=== PATIENT | female | born 1940 | race Caucasian/White ===

== ENCOUNTER 2018-05-09 20:58 | Emergency (ER) | payer OTHER ==
[2018-05-09 21:05] VITALS: BP 118/68; PULSE 116; TEMP 98.3; BMI 21.9
[2018-05-09] MEDS ORDERED: SODIUM CHLORIDE 1,000 ML IV STA (22:38)
--- NOTE | 2018-05-09 22:38 | PDOC ---
History of Present Illness - General History Source: Patient, Family (Daughter) Exam Limitations: No Limitations - History of Present Illness Initial Comments: 05/09/18 23:20 The patient is a 77-year-old female, with a significant past medical history of NIDDM, who presents to the ED with 1 day of diarrhea. Patient states that her symptoms began this morning and since then she reports having 10 episodes of loose, watery stool. She reports that she noted blood during her initial episodes but now she notes mucus in her stool. Patient does have a history of hemorrhoids. She reports taking a dose of imodium at 6PM and a second one at 8PM. She denies any recent travel or recent sick contacts. The patient denies any fever, chills, nausea, vomiting, or abdominal pain. Denies any shortness of breath or chest pain. Allergies: NKA Surgical History: Social History: None reported PCP: Dr. Mireya Diaz <Jacqueline Juares - Last Filed: 05/09/18 23:49> <Marine Navarrete - Last Filed: 05/14/18 16:34> - General Chief Complaint: Diarrhea Stated Complaint: DIARRHEA Time Seen by Provider: 05/09/18 22:35 Past History <Jacqueline Juares - Last Filed: 05/09/18 23:49> - Past Medical History COPD: No Diabetes: Yes - Immunization History Immunization Up to Date: Yes - Suicide/Smoking/Psychosocial Hx Smoking History: Never smoked Have you smoked in the past 12 months: No Number of Cigarettes Smoked Daily: 0 Hx Alcohol Use: No Drug/Substance Use Hx: No Substance Use Type: None <Marine Navarrete - Last Filed: 05/14/18 16:34> - Past Medical History Allergies/Adverse Reactions: Allergies Allergy/AdvReac Type Severity Reaction Status Date / Time No Known Allergies Allergy Verified 01/15/16 21:45 Home Medications: Ambulatory Orders metFORMIN HCL [Glucophage] 18 unit PO DAILY 02/05/14 Calcium [Hi-Edwin] 250 mg PO DAILY 01/15/16 Cholecalciferol (Vitamin D3) [Vitamin D-3] 2,000 unit PO DAILY 01/15/16 Insulin Lispro Protamin/Lispro [Humalog Mix 75-25 Kwikpen] 100 unit SQ BID 01/15 Multivit-Min/Iron/Folic/Lutein [Centrum Silver Women Tablet] 1 each PO DAILY levoFLOXacin [Levaquin -] 250 mg PO DAILY #7 tablet 05/10/18 Review of Systems - Review of Systems Able to Perform ROS?: Yes Comments:: 05/09/18 23:20 CONSTITUTIONAL: Absent: fever, chills, diaphoresis, generalized weakness, malaise, loss of appetite HEENT: Absent: rhinorrhea, nasal congestion, throat pain, throat swelling, difficulty swallowing, mouth swelling, ear pain, eye pain, visual Changes CARDIOVASCULAR: Absent: chest pain, syncope, palpitations, irregular heart rate, lightheadedness , peripheral edema RESPIRATORY: Absent: cough, shortness of breath, dyspnea with exertion, orthopnea, wheezing, stridor, hemoptysis GASTROINTESTINAL: Present: diarrhea Absent: abdominal pain, abdominal distension, nausea, vomiting, constipation, melena, hematochezia GENITOURINARY: Absent: dysuria, frequency, urgency, hesitancy, hematuria, flank pain, genital pain MUSCULOSKELETAL: Absent: myalgia, arthralgia, joint swelling SKIN: Absent: rash, itching, pallor HEMATOLOGIC/IMMUNOLOGIC: Absent: easy bleeding, easy bruising, lymphadenopathy, frequent infections ENDOCRINE: Absent: unexplained weight gain, unexplained weight loss, heat intolerance, cold intolerance NEUROLOGIC: Absent: headache, focal weakness or paresthesias, dizziness, unsteady gait, seizure, mental status changes, bladder or bowel incontinence PSYCHIATRIC: Absent: anxiety, depression, suicidal or homicidal ideation, hallucinations. <Jacqueline Juares - Last Filed: 05/09/18 23:49> *Physical Exam - Vital Signs Last Vital Signs Temp Pulse Resp BP Pulse Ox 98.3 F 116 H 20 118/68 98 05/09/18 21:02 05/09/18 21:02 05/09/18 21:02 05/09/18 21:02 05/09/18 21:02 - Physical Exam Comments: 05/09/18 23:21 GENERAL: Well developed, well nourished. Awake and alert. No acute distress. HEENT: Normocephalic, atraumatic. PERRLA, EOMI. No conjunctival pallor. Sclera are non- icteric. Moist mucous membranes. Oropharynx is clear. NECK: Supple. Full ROM. No JVD. Carotid pulses 2+ and symmetric, without bruits. No thyromegaly. No lymphadenopathy. CARDIOVASCULAR: Regular rate and rhythm. No murmurs, rubs, or gallops. Distal pulses are 2+ and symmetric. PULMONARY: No evidence of respiratory distress. Lungs clear to auscultation bilaterally. No wheezing, rales or rhonchi. ABDOMINAL: Soft. Non-tender. Non-distended. No rebound or guarding. No organomegaly. Normoactive bowel sounds. MUSCULOSKELETAL Normal range of motion at all joints. No bony deformities or tenderness. No CVA tenderness. EXTREMITIES: No cyanosis. No clubbing. No edema. No calf tenderness. SKIN: Warm and dry. Normal capillary refill. No rashes. No jaundice. NEUROLOGICAL: Alert, awake, appropriate. PSYCHIATRIC: Cooperative. Good eye contact. Appropriate mood and affect. Rectal Exam: (+)Skin is very erythematous. 5mm hemorrhoid, nonthrombosed. No blood noted on exam. Normal rectal tone. <Jacqueline Juares - Last Filed: 05/09/18 23:49> - Vital Signs Last Vital Signs Temp Pulse Resp BP Pulse Ox 98.3 F 116 H 20 118/68 98 05/09/18 21:02 05/09/18 21:02 05/09/18 21:02 05/09/18 21:02 05/09/18 21:02 <Marine Navarrete - Last Filed: 05/14/18 16:34> ED Treatment Course - LABORATORY CBC & Chemistry Diagram: 05/09/18 23:30 05/09/18 23:30 <Jacqueline Juares - Last Filed: 05/09/18 23:49> - LABORATORY CBC & Chemistry Diagram: 05/09/18 23:30 05/09/18 23:30 <Marine Navarrete - Last Filed: 05/14/18 16:34> *DC/Admit/Observation/Transfer - Attestations Scribe Attestion: 05/09/18 23:25 Documentation prepared by Jacqueline Juares, acting as medical economics consultant for Marine Navarrete MD. <Jacqueline Juares - Last Filed: 05/09/18 23:49> <Marine Navarrete - Last Filed: 05/14/18 16:34> Diagnosis at time of Disposition: Diarrhea, UTI (urinary tract infection) - Discharge Dispostion Disposition: HOME Condition at time of disposition: Stable - Prescriptions Prescriptions: levoFLOXacin [Levaquin -] 250 mg PO DAILY #7 tablet - Referrals Referrals: Mireya Diaz MD [Primary Care Provider] - - Patient Instructions Printed Discharge Instructions: Diarrhea, DI for Urinary Tract Infection (UTI) Additional Instructions: follow up with your doctor by Tuesday for re-evaluation. Take medication as directed. Return if nay problems. Print Language: NEPALI - Post Discharge Activity
[2018-05-09 23:43] LABS: BASO % 0.3 % (0-2.0); EOS % 0.6 % (0-4.5); HEMATOCRIT 43.8 % (32.4-45.2); HEMOGLOBIN 14.3 GM/dL (10.7-15.3); LYMPH % 4.5 % (8-40); MCH 27.1 pg (25.7-33.7); MCHC 32.7 g/dl (32.0-36.0); MEAN CELL VOLUME 82.9 fl (80-96); MEAN PLT VOLUME 7.4 fl (7.5-11.1); MONO % 4.8 % (3.8-10.2); NEUT % 89.8 % (42.8-82.8); PLATELET COUNT 249 K/MM3 (134-434); RBC 5.29 M/mm3 (3.60-5.2); RDW 14.3 % (11.6-15.6); WHITE BLOOD COUNT 6.4 K/mm3 (4.0-10.0)
[2018-05-09 23:58] LABS: URINE APPEARANCE SLCLOUDY; URINE BILIRUBIN NEGATIVE (<2.0 mg/dL); URINE COLOR LTYELLOW; URINE GLUCOSE (UA) 3+ (NEGATIVE); URINE KETONE NEGATIVE (NEGATIVE); URINE NITRITE NEGATIVE (NEGATIVE); URINE PROTEIN NEGATIVE (NEGATIVE); URINE UROBILINOGEN NEGATIVE mg/dL (0.2-1.0)
[2018-05-09 23:59] LABS: URINE LEUK ESTERASE 3+ (NEGATIVE)
[2018-05-10 00:06] LABS: EPI CELLS RARE /HPF (FEW); URINE BACTERIA RARE /hpf (NONE SEEN); URINE HYALINE CAST 5 /lpf; URINE MUCUS FEW
[2018-05-10 00:18] LABS: ALBUMIN 3.5 g/dl (3.4-5.0); ALK PHOS 90 U/L (45-117); ANION GAP 8 (8-16); BILIRUBIN,TOTAL 0.4 mg/dL (0.2-1.0); BLOOD UREA NITROGEN 13 mg/dL (7-18); CALCIUM 8.3 mg/dL (8.5-10.1); CHLORIDE 105 mmol/L (98-107); CO2 22 mmol/L (21-32); CREATININE 0.9 mg/dL (0.55-1.02); GLUCOSE,RANDOM 259 mg/dL (74-106); POTASSIUM 4.8 mmol/L (3.5-5.1); SGOT/AST 17 U/L (15-37); SGPT/ALT 22 U/L (12-78); SODIUM 135 mmol/L (136-145); TOT PROT 7.3 g/dl (6.4-8.2)
--- NOTE | 2018-05-10 02:51 | PDOC ---
*Physical Exam - Vital Signs Last Vital Signs Temp Pulse Resp BP Pulse Ox 98.3 F 116 H 20 118/68 98 05/09/18 21:02 05/09/18 21:02 05/09/18 21:02 05/09/18 21:02 05/09/18 21:02 ED Treatment Course - LABORATORY CBC & Chemistry Diagram: 05/09/18 23:30 05/09/18 23:30 - ADDITIONAL ORDERS Additional order review: Laboratory Results 05/09/18 05/09/18 05/09/18 23:31 23:30 23:13 Sodium 135 L Potassium 4.8 Chloride 105 Carbon Dioxide 22 Anion Gap 8 BUN 13 Creatinine 0.9 Creat Clearance w eGFR > 60 Random Glucose 259 H Calcium 8.3 L Total Bilirubin 0.4 AST 17 ALT 22 Alkaline Phosphatase 90 Total Protein 7.3 Albumin 3.5 Urine Color Ltyellow Urine Appearance Slcloudy Urine pH 5.0 Ur Specific [place] 1.022 Urine Protein Negative Urine Glucose (UA) 3+ H Urine Ketones Negative Urine Blood 2+ H Urine Nitrite Negative Urine Bilirubin Negative Urine Urobilinogen Negative Ur Leukocyte Esterase 3+ H Urine WBC (Auto) 61 Urine RBC (Auto) 8 Ur Epithelial Cells Rare Urine Bacteria Rare Hyaline Casts 5 Urine Mucus Few Stool Occult Blood Positive 05/09/18 23:30 RBC 5.29 H MCV 82.9 MCHC 32.7 RDW 14.3 MPV 7.4 L Neutrophils % 89.8 H Lymphocytes % 4.5 L Monocytes % 4.8 Eosinophils % 0.6 Basophils % 0.3 - Medications Given in the ED: ED Medications Discontinued Medications Generic Name Dose Route Start Last Admin Trade Name Freq PRN Reason Stop Dose Admin Sodium Chloride 1,000 mls @ 1,000 mls/hr 05/09/18 22:38 05/09/18 23:46 Normal Saline - IV 05/09/18 23:37 1,000 mls/hr ASDIR STA Administration *DC/Admit/Observation/Transfer Diagnosis at time of Disposition: Diarrhea, UTI (urinary tract infection) - Discharge Dispostion Disposition: HOME Condition at time of disposition: Stable Decision to Admit order: No - Referrals Referrals: Mireya Diaz MD [Primary Care Provider] - - Patient Instructions Printed Discharge Instructions: DI for Urinary Tract Infection (UTI), Diarrhea Additional Instructions: follow up with your doctor by Tuesday for re-evaluation. Take medication as directed. Return if nay problems. Print Language: SAMI - Post Discharge Activity
--- NOTE | 2018-05-10 10:40 | EKG ---
Test Reason : Blood Pressure : / mmHG Vent. Rate : 099 BPM Atrial Rate : 099 BPM P-R Int : 156 ms QRS Dur : 078 ms QT Int : 364 ms P-R-T Axes : 075 054 068 degrees QTc Int : 467 ms NORMAL SINUS RHYTHM POSSIBLE LEFT ATRIAL ENLARGEMENT BORDERLINE ECG NO PREVIOUS ECGS AVAILABLE Confirmed by DARIN ABKER MD ([id number]) on 05/10/2018 10:40:44 AM Referred By: Confirmed By:DARIN BAKER MD
== END 2018-05-10 03:09 | disposition home or self-care (01) ==
LOC: JER 20:58
PROC: 3E0337Z Introduction of Electrolytic and Water Balance Substance into Peripheral Vein, Percutaneous Approach (ICD-10-PCS; principal; 2018-05-09)
DX: R19.7 Diarrhea, unspecified (principal); N39.0 Urinary tract infection, site not specified; E11.9 Type 2 diabetes mellitus without complications; Z79.84 Long term (current) use of oral hypoglycemic drugs
CPT/HCPCS: 36415; 74177-TC; 80053; 81003; 81015; 82272; 85025; 87086; 87186; 93005; 93010; 96360; 99282-25; J7030

== ENCOUNTER 2022-03-29 12:46 | Emergency (ER) | payer OTHER ==
[2022-03-29 13:11] VITALS: TEMP 97.8; BMI 22.6
[2022-03-29] MEDS ORDERED: DIPHTH,PERTUSS(ACELL),TET 0.5 ML DISP.SYRIN IM ONE ×2 (13:49→14:08)
[2022-03-29] MEDS ORDERED: ACETAMINOPHEN 500 MG TABLET (FP) PO ONE (14:04)
[2022-03-29] MEDS ORDERED: ACETAMINOPHEN 325 MG TABLET (FP) ONE (14:22)
[2022-03-29 17:28] VITALS: BP 114/59; PULSE 68
== END 2022-03-29 17:44 | disposition home or self-care (01) ==
LOC: JER 12:46
PROC: 2W39X1Z Immobilization of Left Upper Extremity using Splint (ICD-10-PCS; principal; 2022-03-29)
PROC: 3E0234Z Introduction of Serum, Toxoid and Vaccine into Muscle, Percutaneous Approach (ICD-10-PCS; 2022-03-29)
DX: S52.502A Unspecified fracture of the lower end of left radius, initial encounter for closed fracture (principal); W01.0XXA Fall on same level from slipping, tripping and stumbling without subsequent striking against object, initial encounter
CPT/HCPCS: 29105; 70450-TC; 73030-TC-LT-FY; 73110-TC-LT-FY; 73130-TC-LT-FY; 90471; 90715; 99285-25

== ENCOUNTER 2022-05-10 10:53 | Emergency (ER) | payer OTHER ==
[2022-05-10 11:14] VITALS: BP 123/55; PULSE 96; TEMP 98.2; BMI 22.8
[2022-05-10] MEDS ORDERED: ACETAMINOPHEN 325 MG TABLET (FP) PO ONE (12:03)
[2022-05-10] MEDS ORDERED: KETOROLAC TROMETHAMINE 30 MG/1 ML VIAL IM ONE (12:03)
[2022-05-10] MEDS ORDERED: KETOROLAC TROMETHAMINE 30 MG/1 ML VIAL ONE (12:15)
[2022-05-10] MEDS ORDERED: ACETAMINOPHEN 325 MG TABLET (FP) ONE (12:15)
== END 2022-05-10 16:07 | disposition home or self-care (01) ==
LOC: JERFT 10:53
PROC: 3E0233Z Introduction of Anti-inflammatory into Muscle, Percutaneous Approach (ICD-10-PCS; principal; 2022-05-10)
DX: R22.31 Localized swelling, mass and lump, right upper limb (principal)
CPT/HCPCS: 73502-TC-RT-FY; 73560-TC-RT-FY; 93971; 96372; 99285-25